=== PATIENT | male | born 1970 | race Caucasian/White ===

== ENCOUNTER 2017-09-13 18:54 | Emergency (ER) | payer BC ==
[~2017-09-13] VITALS: Ht 172.7 cm; Wt 85.6 kg
[2017-09-13 19:09] VITALS: TEMP 37.3; Ht 172.7 cm; Wt 85.6 kg
[2017-09-13] MEDS ORDERED: OPTIRAY 320 IV PRN (19:45)
[2017-09-13 20:09] LABS: BASO % 0.8 %; BASO ABS # 0.05 K/uL (0-0.2); EOS % 0.2 %; EOS ABS # 0.01 K/uL (0-0.5); HEMATOCRIT 41.8 % (42-52); HEMOGLOBIN 14.8 g/dL (14.0-18.0); IG# 0.02 K/uL (0.00-0.02); LYMPH % 29.5 %; LYMPH ABS # 1.95 K/uL (1.2-3.4); MEAN CELL VOLUME 86.5 fL (80-100); MEAN CORPUSCULAR HEMOGLOBIN 30.6 pg (25-34); MEAN CORPUSCULAR HGB CONC 35.4 g/dl (32-36); MEAN PLATELET VOLUME 10.2 fL (7.4-10.4); MONO % 11.2 %; MONO ABS # 0.74 K/uL (0.11-0.59); NEUT ABS # 3.85 K/uL (1.4-6.5); PLATELET COUNT 206 K/uL (130-400); RED CELL DISTRIBUTION WIDTH CV 12.5 % (11.5-14.5); RED CELL DISTRIBUTION WIDTH SD 39.7 fL (36.4-46.3); WHITE BLOOD COUNT 6.62 K/uL (4.8-10.8)
[2017-09-13 20:33] LABS: CALCIUM 9.6 mg/dl (8.5-10.1); CREATININE 0.82 mg/dl (0.60-1.40); POTASSIUM 3.9 mmol/L (3.5-5.1)
[2017-09-13] MEDS ORDERED: PRLSR20 PO (20:46)
[2017-09-13] MEDS ORDERED: LEVO88TA3 PO (20:46)
[2017-09-13] MEDS ORDERED: ATOR-22 PO (20:52)
[2017-09-13] MEDS ORDERED: TEMA30CA4 PO (20:52)
[2017-09-13] MEDS ORDERED: LITH1TAB PO (20:52)
[2017-09-13] MEDS ORDERED: QUET1TAB13 PO (20:52)
[2017-09-13] MEDS ORDERED: LTHSR/300 PO (20:52)
[2017-09-13] MEDS ORDERED: CARB200T3 PO (20:52)
[2017-09-13] MEDS ORDERED: BUSP15TA70 PO (20:52)
[2017-09-13] MEDS ORDERED: CLINDAMYCIN 600 MG/54 ML D5W IV ONE (21:15)
--- NOTE | 2017-09-13 21:43 | DIAGNOSTIC IMAGING REPORT ---
MAXILLOFACIAL CT WITH INTRAVENOUS CONTRAST CLINICAL HISTORY: L sided face swelling, hx previous dental abscess TECHNIQUE: Multiaxial CT images of the maxillofacial region were performed and reformatted in the coronal plane following the use of intravenous contrast. COMPARISON STUDY: None. FINDINGS: There is left facial/mandibular subcutaneous fat stranding. A 6 mm periapical lucency at the lingual root at ADA 14. No cortical breakthrough identified. No additional periapical lucencies identified. Multiple dental caries are noted. No loculated fluid collections to suggest abscess at this time. The parotid and submandibular glands are symmetric. Cervical lymph nodes are symmetric and not significantly enlarged. Prevertebral soft tissues and the epiglottis are normal in thickness. The orbits are unremarkable. The visualized brain parenchyma is normal. The major cervical vessels are widely patent. The mastoid air cells are clear. Mild mucosal thickening within the floor the left maxillary sinus. Left nasal septal deviation. No acute fractures identified. IMPRESSION: 1. Left facial/mandibular subcutaneous fat stranding consistent with a cellulitis. 2. No evidence for an abscess. 3. A 6 mm periapical lucency at the lingual root of ADA 14. There are also multiple dental caries identified. Electronically signed by: Juanjose Vega M.D. 09/13/2017 9:42 PM Dictated Date/Time: 09/13/2017 9:37 PM
[2017-09-13] MEDS ORDERED: CLIN300C10 PO (22:02)
[2017-09-13] MEDS ORDERED: DEXAMETHASONE SOD INJ 4 MG/ML VIAL IV STA (22:03)
[2017-09-13] MEDS ORDERED: DEXAMETHASONE **PF** INJ 10 MG/ML VIAL ONE (22:08)
[2017-09-13 22:28] VITALS: BP 123/83; PULSE 81; O2SAT 98
--- NOTE | 2017-09-14 01:36 | EMERGENCY ROOM VISIT NOTE ---
ED Visit Note First contact with patient: 19:22 Chief Complaint: Dental abscess and facial swelling. History of Present Illness: Mr. cAosta is a 46-year-old white male who ambulates into the ED complaining of a dental abscess with facial swelling. Patient reports approximately 6 months ago he had a dental abscess in the right maxillary tooth area. He was seen by dentistry and placed on clindamycin and had resolution of his symptoms. He was encouraged to have dental surgery but refused because he reported he could not afford the cost of the surgery. Patient reports approximately 2-3 days ago he started experiencing dental pain over the right maxillary area in the area of teeth 5 through 7. He reports initially it was mild and has gradually increased in intensity. Over the last 24 hours he reports he is started developing facial swelling throughout the left side of the face. He reports he did not have facial swelling with his last abscess and is very concerned. Currently he is complaining of a burning discomfort over the left side of the face where his swelling is located including the area just above the maxilla and in the right maxillary sinus area. He rates his discomfort 3/10. His pain is nonradiating. His pain worsens with gentle palpation and facial palpation. He has not identified any alleviating factors related to the pain. Associated with his pain he reports he has been having chills but is not sure if he has had any mely fevers. He has not taken any medication for pain prior to arrival at the hospital. He does report he has been using ice with significant improvement in his pain. He denies chills, sweats, other skin eruptions, other skin color changes, headache, dizziness, lightheadedness, visual changes, hearing changes, recent direct or repetitive facial trauma, sore throat, upper respiratory tract symptoms, neck pain/stiffness, coughing, shortness of breath, decreased appetite , nausea/vomiting. Review of Systems: As noted above in history of present illness. All body systems were reviewed and found to be negative as noted above. Past Medical History: As previously noted. Current Medications: Levothyroxine, Prilosec, Tegretol, Seroquel, lithium, BuSpar, Lipitor, Restoril. Allergies to Medications: Penicillin, codeine. Social History: Patient is not employed; he lives with his and feels safe in his home environment; he denies tobacco use and admits to alcohol use. Physical Examination: Vital Signs: Date Time Temp Pulse Resp B/P (MAP) Pulse Ox O2 Delivery O2 Flow Rate FiO2 09/13/17 22:28 81 18 123/83 98 09/13/17 21:19 82 20 129/82 96 Room Air 09/13/17 19:09 37.3 93 16 122/78 97 Room Air GENERAL: 46-year-old male in mild distress due to pain, nontoxic-appearing, afebrile and hemodynamically stable. NEUROLOGICAL: Awake, alert and oriented to person, place and time. Answering questions appropriately and following commands. Normal gait. Good hand eye coordination. SKIN: Warm, dry and pink. No soft tissue eruptions or trauma noted. HEENT: Atraumatic and normocephalic. PERRLA. Sclera white and conjunctiva pink. Over the left side of the face starting from the area just inferior to the left nostrils and extending superior there is moderate erythema and mild swelling. This area is tender to palpation. No tenderness over the zygomatic structures or the inferior area of the left orbit. Oral cavity moist and pink. Intraorally patient has multiple areas of dental decay over the maxillary and mandibular teeth. I was not able to palpate any abscesses. There is moderate left sided gingiva erythema over the maxillary and mandibular gingiva. Speech normal. Airway was patent. No cervical or submandibular lymphadenopathy. Trachea midline. No jugular venous distention. THORAX: Lungs sounds are clear to auscultation and equal bilaterally with symmetrical chest wall. ABDOMEN: Flat, soft and nontender. Positive bowel sounds in all quadrants. No guarding, rigidity or organomegaly. ED Course: Patient is assessed as noted above. Patient's medication list was reviewed. Laboratory Testing: Test 09/13/17 19:55 Range/Units White Blood Count 6.62 4.8-10.8 K/uL Red Blood Count 4.83 4.7-6.1 M/uL Hemoglobin 14.8 14.0-18.0 g/dL Hematocrit 41.8 42-52 % Mean Corpuscular Volume 86.5 80-100 fL Mean Corpuscular Hemoglobin 30.6 25-34 pg Mean Corpuscular Hemoglobin Concent 35.4 32-36 g/dl Platelet Count 206 130-400 K/uL Mean Platelet Volume 10.2 7.4-10.4 fL Neutrophils (%) (Auto) 58.0 % Lymphocytes (%) (Auto) 29.5 % Monocytes (%) (Auto) 11.2 % Eosinophils (%) (Auto) 0.2 % Basophils (%) (Auto) 0.8 % Neutrophils # (Auto) 3.85 1.4-6.5 K/uL Lymphocytes # (Auto) 1.95 1.2-3.4 K/uL Monocytes # (Auto) 0.74 0.11-0.59 K/uL Eosinophils # (Auto) 0.01 0-0.5 K/uL Basophils # (Auto) 0.05 0-0.2 K/uL RDW Standard Deviation 39.7 36.4-46.3 fL RDW Coefficient of Variation 12.5 11.5-14.5 % Immature Granulocyte % (Auto) 0.3 % Immature Granulocyte # (Auto) 0.02 0.00-0.02 K/uL Sodium Level 136 136-145 mmol/L Potassium Level 3.9 3.5-5.1 mmol/L Chloride Level 103 98-107 mmol/L Carbon Dioxide Level 25 21-32 mmol/L Anion Gap 8.0 3-11 mmol/L Blood Urea Nitrogen 8 7-18 mg/dl Creatinine 0.82 0.60-1.40 mg/dl Est Creatinine Clear Calc Drug Dose 121.1 ml/min Estimated GFR () 123.8 Estimated GFR (Non- 106.8 BUN/Creatinine Ratio 9.2 10-20 Random Glucose 115 70-99 mg/dl Calcium Level 9.6 8.5-10.1 mg/dl Contrast Facial CT: Was reviewed by myself and read by the radiologist showing left facial/mandibular subcutaneous fat stranding consistent with cellulitis but no evidence of abscess. 6 mm a periapical lucency at the inguinal root of tooth 14 and also multiple dental caries are noted. Patient received 600 mg of clindamycin IV for antibiotic coverage and 10 mg of Decadron IV for inflammation. Patient was reassessed multiple times during her stay in the emergency department. Patient was educated about today's findings and instructed on his treatment plan ; he verbalizes understanding and agreement with this plan. Clinical Impression: Facial cellulitis. Multiple dental caries. Disposition: Patient discharged home in stable condition accompanied by his ; prior to departure he was reassessed and subjectively reported he was feeling the same. Plan: Patient was prescribed clindamycin 300 mg 4 times a day for 10 days. Patient was encouraged alternate ibuprofen and acetaminophen as needed for pain. Patient was encouraged to continue to use ice on the facial areas of pain and swelling. Patient was encouraged to follow-up with dentistry for definitive care and treatment. Patient was encouraged to return the ED for worsening redness, worsening facial swelling, worsening pain, fevers or any new/concerning symptoms.
== END 2017-09-13 22:30 | disposition home or self-care (01) ==
LOC: C.EDB 18:56 → C.EDC 22:30
DX: L03.211 Cellulitis of face (principal); K02.9 Dental caries, unspecified; Z72.89 Other problems related to lifestyle

== ENCOUNTER → 2017-10-26 | Outpatient (CLI) | payer BC ==
[~2017-10-26] MED LIST: ATOR-22 PO; BUSP15TA70 PO; CARB200T3 PO; CLIN300C10 PO; LEVO88TA3 PO; LITH1TAB PO; LTHSR/300 PO; PRLSR20 PO; QUET1TAB13 PO; TEMA30CA4 PO
[2017-10-26 14:10] LABS: ALBUMIN 4.2 gm/dl (3.4-5.0); ALT/SGPT 72 U/L (12-78); AST/SGOT 22 U/L (15-37); BLOOD UREA NITROGEN 14 mg/dl (7-18); CALCIUM 9.6 mg/dl (8.5-10.1); CARBON DIOXIDE 27 mmol/L (21-32); CHOLESTEROL 177 mg/dl (0-200); CREATININE 0.98 mg/dl (0.60-1.40); GLUCOSE 107 mg/dl (70-99); POTASSIUM 3.9 mmol/L (3.5-5.1); SODIUM 139 mmol/L (136-145)
[2017-10-26 14:19] LABS: ALKALINE PHOSPHATASE 61 U/L (45-117); LDL CHOLESTEROL CALCULATED 56 mg/dl; TOTAL PROTEIN 8.2 gm/dl (6.4-8.2)
== END | disposition home or self-care (01) ==
LOC: C.LABBC 11:44
PROVIDERS: ATTEND Psychiatry & Neurology Psychiatry
DX: Z79.899 Other long term (current) drug therapy (principal)